=== PATIENT | female | born 1955 | race Caucasian/White ===

== ENCOUNTER 2022-03-06 14:22 | Emergency (ER) | payer MEDICARE ==
[~2022-03-06] VITALS: Ht 170.2 cm; Wt 65.5 kg
[2022-03-06 14:41] VITALS: BP 131/88; PULSE 76; TEMP 98.1
[2022-03-06] MEDS ORDERED: ROBAXIN 50500 MG/TAB PO (19:17)
[2022-03-06] MEDS ORDERED: LIDODERM 5% PATC1 EA TP (19:17)
== END 2022-03-06 19:30 | disposition home or self-care (01) ==
LOC: COL.ER 14:22
DX: S29.011A Strain of muscle and tendon of front wall of thorax, initial encounter (principal); Z28.310 Unvaccinated for COVID-19; W01.0XXA Fall on same level from slipping, tripping and stumbling without subsequent striking against object, initial encounter; X50.1XXA Overexertion from prolonged static or awkward postures, initial encounter; Y92.009 Unspecified place in unspecified non-institutional (private) residence as the place of occurrence of the external cause